=== PATIENT | male | born 1960 | race Caucasian/White ===

== ENCOUNTER 2019-08-23 10:41 | Emergency (ER) | payer OTHER ==
[2019-08-23] MEDS ORDERED: Fluorescein Sodium TOPICAL* 1 MG TEST STRIP OPHTHALMIC ONE (10:45)
[2019-08-23] MEDS ORDERED: Tetracaine 0.5% OPTH.SOL 4 ML* 1 DROP BTL LEFT EYE ONE (10:45)
[2019-08-23 11:05] VITALS: BP 153/99
--- NOTE | 2019-08-23 11:15 | UC ---
Eye Complaint HPI - HPI Summary HPI Summary: 59 yo male presents with LEFT eye complaint. He tells me that on 08/20 he was working and a splash of car coolant got into his left eye. He rinsed his eye immediately and has been doing saline rinses daily since that time. Over the last 24 hours has noticed increased redness and itchiness to his eye. This morning he woke and had yellow drainage with his eye crusted shut. He does not wear glasses or contacts. Denies vision changes. - History of Current Complaint Chief Complaint: UCEye Stated Complaint: EYE INJURY Time Seen by Provider: 08/23/19 11:10 Hx Obtained From: Patient Onset/Duration: Gradual Onset Severity Currently: None Pain Intensity: 0 - Allergies/Home Medications Allergies/Adverse Reactions: Allergies Allergy/AdvReac Type Severity Reaction Status Date / Time No Known Allergies Allergy Verified 08/23/19 10:59 PMH/Surg Hx/FS Hx/Imm Hx - Additional Past Medical History Additional PMH: None - Surgical History Surgical History: None - Family History Known Family History: Positive: Non-Contributory - Social History Occupation: Employed Full-time Lives: With Family Alcohol Use: Rare Substance Use Type: None Smoking Status (MU): Current Some Day Smoker Review of Systems All Other Systems Reviewed And Are Negative: No Constitutional: Positive: Negative Skin: Positive: Negative Eyes: Positive: Drainage, Eye Redness ENT: Positive: Negative Respiratory: Positive: Negative Cardiovascular: Positive: Negative Neurological: Positive: Negative Psychological: Positive: Negative Physical Exam - Summary Physical Exam Summary: GENERAL: WDWN. No pain distress. SKIN: No rashes, sores, lesions, or open wounds. HEENT: Head: AT/NC Eyes: EOM intact. PERRLA. LEFT EYE: Mild scleral injection. Conjunctiva with mild erythema and inflammation. Mild yellow discharge. No FBs appreciated. Fluorescein exam performed and no corneal abrasion or alma sign. Nose: NTTP maxillary and frontal sinus. NECK: Supple. Nontender. No lymphadenopathy. CHEST: No accessory muscle use. Breathing comfortably and in no distress. CV: Pulses intact. Cap refill <2seconds NEURO: Alert. PSYCH: Age appropriate behavior. Triage Information Reviewed: Yes Vital Signs: Initial Vital Signs Temp 98.3 F 08/23/19 10:59 Pulse 82 08/23/19 10:59 Resp 16 08/23/19 10:59 BP 153/99 08/23/19 10:59 Pulse Ox 100 08/23/19 10:59 Vital Signs Reviewed: Yes Procedures - Sedation Patient Received Moderate/Deep Sedation with Procedure: No Eye Complaint Course/Dx - Course Course Of Treatment: Left eye conjunctivitis - Differential Dx/Diagnosis Provider Diagnosis: Conjunctivitis Discharge ED - Sign-Out/Discharge Documenting (check all that apply): Patient Departure All imaging exams completed and their final reports reviewed: No Studies - Discharge Plan Condition: Stable Disposition: HOME Prescriptions: Ofloxacin 0.3% (Eye Drop) [Ocuflox OPTH 0.3% (Eye Drop)] 1 drop LEFT EYE QID 5 Days #1 btl Patient Education Materials: Conjunctivitis (ED) Referrals: Nathaniel Mcelroy MD [Primary Care Provider] - Additional Instructions: If you develop a fever, shortness of breath, chest pain, new or worsening symptoms - please call your PCP or go to the ED immediately. Your blood pressure was high at todays visit. Please see your primary provider within 4 weeks for recheck and re-evaluation. - Billing Disposition and Condition Condition: STABLE Disposition: Home - Attestation Statements Provider Attestation: Patient not seen by me I was available for consult Chart reviewed
== END 2019-08-23 11:25 | disposition home or self-care (01) ==
LOC: UCEAST 10:41
DX: H10.9 Unspecified conjunctivitis (principal); F17.210 Nicotine dependence, cigarettes, uncomplicated
CPT/HCPCS: 99202; A9270-GY; G0463

== ENCOUNTER 2019-08-28 19:55 | Emergency (ER) | payer OTHER ==
--- OUTSIDE RECORDS SUMMARY | 2019-08-28 20:00 | XMS REPORT | Summary of Care ---
:1960 Author Organization [facility] Address [address] [place] [address] Care Team Providers Name Role Phone Nathaniel Mcelroy Primary Care Provider Reason for Visit Reason Comments Other pt presents for left hand/arm numbness. States happens when he puts any pressure on arm. On going for last few months. Encounter Details Date Type Department Care Team Description 08/17/2019 Office Visit [facility] Juanita Graham, Left hand paresthesia Practice CHISEL GRINDER (Primary Dx) [address] [place] [address] [place] [address] [phone] Allergies No Known Allergiesdocumented as of this encounter (statuses as of 08/17/2019) Medications Medication Sig Dispensed Refills Start Date End Date Status VITAMIN C 100 MG PO PRN. 0 Active TABS IBUPROFEN 200 PO Take by mouth 0 Active NEEDED. documented as of this encounter (statuses as of 08/17/2019) Active Problems No known active problemsdocumented as of this encounter (statuses as of 2018) Resolved Problems Problem Noted Date Resolved Date Knee pain, left 09/07/2013 09/11/2017 documented as of this encounter (statuses as of 08/17/2019) Social History Tobacco Use Types Packs/Day Years Used Date Current Some Day Smoker Cigars Smokeless Tobacco: Former User Comments: occasionally cigar Alcohol Use Drinks/Week oz/Week Comments Yes socially Sex Assigned at Date Recorded Not on file Job Start Date Occupation Industry Not on file Not on file Not on file Travel History Travel Start Travel End No recent travel history available. documented as of this encounter Last Filed Vital Signs Vital Sign Reading Time Taken Comments Blood Pressure 130/86 08/17/2019 8:04 AM EDT Pulse 61 08/17/2019 8:04 AM EDT Temperature - - Respiratory Rate - - Oxygen Saturation 97% 08/17/2019 8:04 AM EDT Inhaled Oxygen Concentration - - Weight 102.1 kg (225 lb) 08/17/2019 8:04 AM EDT Height 193 cm (6' 4") 08/17/2019 8:04 AM EDT Body Mass Index 27.39 08/17/2019 8:04 AM EDT documented in this encounter Patient Instructions Patient InstructionsJuanita Graham FNP - 08/17/2019 8:00 AM EDTTake breaks while working Range of motion wrist stretches periodically Ice to wrists daily after work. Call if numbness worsensElectronically signed by Juanita Graham FNP at 2018 8:15 AM EDT documented in this encounter Progress Notes Juanita Graham FNP - 08/17/2019 8:00 AM EDT PATIENT: Javier Rankin : 1960 DATE OF SERVICE: 08/17/2019 CHIEF COMPLAINT: Chief Complaint Patient presents with Other pt presents for left hand/arm numbness. States happens when he puts any pressure on arm. On going for last few months. Subjective HISTORY OF PRESENT ILLNESS: Javier Rankin is a 59-y.o. male. HPI C/o numbness left hand when leans on left arm x 2 months. Resolves quickly. Denies injury. No pain. Past Medical History: Diagnosis Date Dyslipidemia 2016 9% Family History Problem Relation Age of Onset Cancer Father Prostate Cancer Heart Unknown Family Hx Breast Cancer Mother Current Outpatient Medications Medication Sig IBUPROFEN 200 PO Take by mouth NEEDED. VITAMIN C 100 MG PO TABS PRN. No current facility-administered medications for this visit. No Known Allergies Social History Socioeconomic History Marital status: Single Spouse name: Not on file Number of children: Not on file Years of education: Not on file Highest education level: Not on file Occupational History Not on file Social Needs Financial resource strain: Not on file Food insecurity: Worry: Not on file Inability: Not on file Transportation needs: Medical: Not on file Non-medical: Not on file Tobacco Use Smoking status: Current Some Day Smoker Types: Cigars Smokeless tobacco: Former User Tobacco comment: occasionally cigar Substance and Sexual Activity Alcohol use: Yes Comment: socially Drug use: Not on file Sexual activity: Not on file Lifestyle Physical activity: Days per week: Not on file Minutes per session: Not on file Stress: Not on file Relationships Social connections: Talks on phone: Not on file Gets together: Not on file Attends spiritism service: Not on file Active member of club or organization: Not on file Attends meetings of clubs or organizations: Not on file Relationship status: Not on file Intimate partner violence: Fear of current or ex partner: Not on file Emotionally abused: Not on file Physically abused: Not on file Forced sexual activity: Not on file Other Topics Concern Not on file Social History Narrative Therm Over the last 2 weeks, have you been feeling down, depressed, anxious, or hopeless?: 0 Over the past 2 weeks, have you felt little interest or pleasure in doing things ?: 0 REVIEW OF SYSTEMS: Review of Systems Constitutional: Negative for chills and fever. Musculoskeletal: Negative for joint pain and myalgias. Skin: Negative for rash. Neurological: Positive for tingling. Negative for dizziness and headaches. Objective PHYSICAL EXAM: VITALS: BP 130/86 (BP Location: Left arm, Patient Position: Sitting) | Pulse 61 | Ht 6' 4" (1.93 m) | Wt 225 lb (102.1 kg) | SpO2 97% | BMI 27.39 kg/m Body mass index is 27.39 kg/m. Physical Exam Vitals signs reviewed. Constitutional: Appearance: Normal appearance. HENT: Head: Normocephalic and atraumatic. Musculoskeletal: Normal range of motion. Left hand: He exhibits normal range of motion, no tenderness, normal capillary refill and no swelling. Normal sensation noted. Normal strength noted. Comments: Unable to reproduce sx on exam Skin: General: Skin is warm and dry. Capillary Refill: Capillary refill takes less than 2 seconds. Findings: No rash. Neurological: General: No focal deficit present. Mental Status: He is alert and oriented to person, place, and time. Cranial Nerves: Cranial nerves are intact. Sensory: Sensation is intact. Motor: No weakness or tremor. Psychiatric: Behavior: Behavior is cooperative. ASSESSMENT / IMPRESSION: ICD-9-CM ICD-10-CM 1. Left hand paresthesia 782.0 R20.2 brief episodes that spontaneously resolve related to position Plan Take breaks while working Range of motion wrist stretches periodically Ice to wrists daily after work. Call if numbness worsens Author: LES Yarbrough 08/17/2019 08:23 documented in this encounter Plan of Treatment Date Type Specialty Care Team Description 11/03/2019 Office Visit Family Practice Nathaniel Mcelroy MD [address] [place] [id number] [phone] Health Maintenance Due Date Last Done Comments PNEUMOCOCCAL 0-64 YRS (1 of 02/06/1966 1 - PPSV23) HIV SCREENING 02/06/1975 HEPATITIS C SCREENING 2000 ZOSTER IMMUNIZATION SERIES 02/06/2010 (1 of 2) DEPRESSION SCREENING 09/11/2018 09/11/2017 DIABETES SCREENING 09/11/2018 09/11/2017 INFLUENZA VACCINE (#1) 2019 LIPID DISORDER SCREENING 09/11/2022 09/11/2017, 12/28/2012, 08/08/2009, Additional history exists COLONOSCOPY SCREENING 01/13/2023 01/13/2013 HPV IMMUNIZATION SERIES Aged Out No longer eligible based on patient's age to complete this topic MENINGOCOCCAL VACCINE IMM Aged Out No longer eligible based on patient's age to complete this topic documented as of this encounter Results Not on filedocumented in this encounter Visit Diagnoses Diagnosis Left hand paresthesia - Primary Disturbance of skin sensation documented in this encounter Insurance Payer Benefit Plan / Subscriber ID Effective Dates Phone Address Type Group LIFETIME LIFETIME BENEFIT xxxxxxxxxxxx Effective for [employer] all dates [employer] Guarantor Name Account Type Relation to Date of Phone Billing Patient Address MassielJavier Sameer Personal/Family 1960 [address] (Home) [address] [phone] [facility] ([place]) [place] [address] documented as of this encounter
[2019-08-28 20:06] VITALS: BP 153/94
[2019-08-28] MEDS ORDERED: Clindamycin CAP* 150 MG PO ONE (20:21)
--- NOTE | 2019-08-28 20:26 | UC ---
[facility] HPI - HPI Summary HPI Summary: 59 yo WM c/o left lower second to last molar broken tooth that became infected, now with left mandibular pain and swelling x 2 days, will call his oral surgeon tomorrow - History of Current Complaint Chief Complaint: UCDentalProblem Stated Complaint: DENTAL Time Seen by Provider: 08/28/19 20:07 Hx Obtained From: Patient Onset/Duration: Lasting Days Severity: Moderate Pain Intensity: 3 Aggravating Factor(s): Chewing - Allergies/Home Medications Allergies/Adverse Reactions: Allergies Allergy/AdvReac Type Severity Reaction Status Date / Time No Known Allergies Allergy Verified 08/28/19 20:06 Home Medications: Home Medications Ibuprofen TAB* [Advil TAB*] 400 mg PO PRN 08/28/19 [History] PMH/Surg Hx/FS Hx/Imm Hx - Surgical History Surgical History: None - Family History Known Family History: Positive: Non-Contributory - Social History Alcohol Use: Occasionally Substance Use Type: None Smoking Status (MU): Current Some Day Smoker Type: Cigars Review of Systems All Other Systems Reviewed And Are Negative: Yes Constitutional: Positive: Negative Skin: Positive: Negative Eyes: Positive: Negative ENT: Positive: Other - broken tooth left lower second to last molar Respiratory: Positive: Negative Cardiovascular: Positive: Negative Gastrointestinal: Positive: Negative Neurovascular: Positive: Negative Musculoskeletal: Positive: Negative Neurological: Positive: Negative Psychological: Positive: Negative Physical Exam - Summary Physical Exam Summary: Vital Signs Reviewed: Yes Eye Exam: Normal Eyes: Positive: Conjunctiva Clear ENT: Positive: left lower mandibular swelling, broken tooth left second to last molar with surrounding erythema and mild fluctuance Neck: Positive: Supple Respiratory Exam: Normal Respiratory: Positive: Lungs clear Cardiovascular Exam: Normal Cardiovascular: Positive: RRR, S1 S2 Abdomen: NT/ND Musculoskeletal Exam: Normal Neurological Exam: Normal Psychological Exam: Normal Skin Exam: Normal Triage Information Reviewed: Yes Vital Signs: Initial Vital Signs Temp 36.3 C 08/28/19 20:02 Pulse 84 08/28/19 20:02 Resp 16 08/28/19 20:02 BP 153/94 08/28/19 20:02 Pulse Ox 98 08/28/19 20:02 Dental Complaint Course/Dx - Differential Dx/Diagnosis Provider Diagnosis: Dental abscess Discharge ED - Sign-Out/Discharge Documenting (check all that apply): Patient Departure All imaging exams completed and their final reports reviewed: No Studies - Discharge Plan Condition: Stable Disposition: HOME Prescriptions: Clindamycin HCl 300 mg PO TID 10 Days #30 capsule Patient Education Materials: Dental Abscess (ED) Referrals: Nathaniel Mcelroy MD [Primary Care Provider] - - Billing Disposition and Condition Condition: STABLE Disposition: Home
== END 2019-08-28 20:35 | disposition home or self-care (01) ==
LOC: UCEAST 19:55
DX: K04.7 Periapical abscess without sinus (principal)
CPT/HCPCS: 99212; A9270-GY; G0463